=== PATIENT | male | born 1950 | race African-American/Black ===

== ENCOUNTER → 2016-06-09 | Outpatient (CLI) | payer BC ==
[~2016-06-09] MED LIST: ADALAT CC90 MG PO; AMLODIPINE BES10 MG PO; ASPIRIN 325MG325 MG PO; AUGMENTIN XR 101 TER PO; BIAXIN 500MG T500 MG PO; CLONIDINE HYDR0.2 MG PO; FISH OIL CONC1000 MG PO; HYDROCHLOROTH12.5 M1 PO; HYDROCHLOROTHIA25 M1 PO; HYTRIN5 MG PO; IMDUR 30MG. TAB30 MG PO; IMDUR 60MG. TAB60 MG PO; KEFLEX500 M1 PO; LISINOPRIL 20MG20 MG PO; LOPRESSOR 25MG.25 MG PO; MECLIZINE25 MG PO; METOPROLOL50 MG OR; METOPROLOL50 MG PO; MOTRIN 400MG.400 MG PO; NAPROXEN500 MG PO; NATURAL SAW PA160 MG PO; NORCO 325 MG-51 TAB PO; ODORLESS GARLI500 MG PO; TAMSULOSIN HYD0.4 MG PO
== END ==
LOC: RT 09:55
DX: R06.02 Shortness of breath (principal); I25.10 Atherosclerotic heart disease of native coronary artery without angina pectoris; I10 Essential (primary) hypertension; E78.5 Hyperlipidemia, unspecified

== ENCOUNTER → 2016-11-11 | Outpatient (CLI) | payer BC ==
[2016-11-11 09:42] LABS: HEMOGLOBIN 12.9 g/dL (14.1-18.0); LYMPH # 2.6 K/mm3 (0.7-4.5); LYMPH % 38.7 % (10-50)
== END ==
LOC: LAB 09:34
PROVIDERS: Family Medicine
DX: R10.9 Unspecified abdominal pain (principal)

== ENCOUNTER 2017-03-07 12:38 | Emergency (ER) | payer BC, MEDICARE ==
[~2017-03-07] VITALS: Ht 188 cm; Wt 120.2 kg
[2017-03-07 13:06] LABS: HEMOGLOBIN 14.1 g/dL (14.1-18.0); LYMPH # 2.7 K/mm3 (0.7-4.5); LYMPH % 39.4 % (10-50)
--- NOTE | 2017-03-07 13:12 | Emergency Room Report ---
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 N Clinical Suspician of Infection? N Mental Status: 1 - Regular (Normal Baseline) Sepsis Risk:Low Sepsis Risk Have you (or family members/close friends) recently traveled outside the [place]? N If Yes, where/when: Have you had exposure to infectious disease within the past month? TB? Other? Specify: Patient states she is gotten progressively weak over the past month. It is Worse in the past week he states he has been placed on CPAP recently. He states he has dyspnea on exertion. He denies any fever chills nausea vomiting or diarrhea he denies any pain. Specifically he states he has a minimal headache but that is normal for him, denies chest pain abdominal pain chest tightness or any chest discomfort. Denies any leg swelling he denies any myalgias no rash or skin discoloration. He sees she states she is seen Dr. Luna well recently he started him on the CPAP, he states he had a sleep study which showed sleep apnea about 6 months ago. Besides for the malaise and fatigue and dyspnea on exertion he denies any other symptoms. ALLERGIES Coded Allergies: No Known Allergies (03/07/17) Home Medications Reported Medications Terazosin Hcl (Hytrin) 5 MG PO QHS #30 Amlodipine Besylate (Amlodipine Besylate) 10 MG PO DAILY #30 Garlic (Odorless Garlic) 500 MG PO DAILY ISOSORBIDE MONONITRATE (IMDUR 30MG) 60 MG PO DAILY TAMSULOSIN HCL (Tamsulosin 0.4MG) 0.4 MG PO QHS Hydrochlorothiazide (Hydrochlorothiazide 12.5MG) 12.5 MG PO DAILY Metoprolol Tartrate (Metoprolol) 50 MG OR BID ASPIRIN (Aspirin 325MG) 325 MG PO DAILY Fish Oil (Fish Oil Concentrate) 1,000 MG PO DAILY #3 SAW PALMETTO (Saw [place]) 320 MG PO BID LISINOPRIL (Lisinopril) 20 MG PO BID Clonidine Hcl (Clonidine) 0.2 MG PO BID History Medical History General CAD? No Angina: No LA: No Hypertension? Yes Hyperlipidemia? No CHF? No DVT? No PE? No COPD? No Asthma? No Anemia? No GERD? No Gastric ulcers? No GI Bleed? No Hernia? Yes Thyroid Problems? No Hypothyroidism? No CVA? No Seizures? No Diabetes? No Insulin Dependent: No Insulin Pump: No Home FSBS? No Renal Insuffiency? No End Stage Renal Disease? No UTI? No Stones? No BPH? Yes GB Disease: No Nephritic Syndrome? No Asplenia? No Hepatitis? No Sickle Cell Disease? No Arthritis? No Migraines? Yes Cataracts? No Glaucoma? No MRSA? No HIV? No TB? No Anxiety? No Depression? No Cancer? No More? No Additional hx: chronic back pain TIA Immunization Hx Ped.Immunizations UTD Yes DT/Tetanus Unknown Flu 2015-FSN Pneumonia Received In Past Surgical Hx Previous Surgery?Y BACK FOR DISC X 2 STOMACH TUMOR LT ROTATOR CUFF LEFT EAR L ANKLE STENTS PLACED Family History Family Hx Diabetes Yes CAD No Hypertension Yes Hyperlipidemia No Cancer No TB No Social History Smoking Hx Smoker: Never Smoker Tobacco: No Type Cigars Packs/day N/A Alcohol Alcohol: No Review of Systems All Other Systems Reviewed and Negative Physical Exam Vital Signs Vital Signs Date Time Temp Pulse Resp B/P Pulse O2 O2 Flow FiO2 Ox Delivery Rate 03/07 1412 67 18 148/82 95 03/07 1245 97.8 83 18 210/110 99 General Appearance: Nontoxic obese Head: Normocephalic, without obvious abnormality, atraumatic. Eyes: conjunctiva/corneas clear ENT: Mucous membranes moist. Neck: No jugular venous distention. Cardiac: regular rate and rhythm Lungs: Clear to auscultation bilaterally Abdomen: Nontender, Nondistended, positive bowel sounds, no rebound : No CVA tenderness Extremities: trace edema pt states normal Musculoskeletal: No chest wall tenderness Skin: No rashes or lesions to exposed skin. Neurologic: Alert. No gross focal deficits Psychiatric: Normal affect (Oralia MANNING, Jed) General Appearance normal appearance Respiratory Status No: respiratory distress. Cardiovascular normal exam Neurologic alert Medical Decision Making LABS/Meds/Orders Pt receiving controlled substance in ED? No Comment cxr per my read no infiltrate, nad. bnp normal 251 urine is still pending, workup otherwise unremarkakle, kcl a little low, likely viral syndrome, pt states he can urinate Results/Orders Laboratory Tests 03/07/17 1455: Urine Color YELLOW, Urine Appearance CLEAR, Urine pH 5.5, Ur Specific [place] >= 1.030, Urine Protein NEGATIVE, Urine Ketones NEGATIVE, Urine Blood NEGATIVE, Urine Nitrate NEGATIVE, Urine Bilirubin NEGATIVE, Urine Urobilinogen 0.2, Ur Leukocyte Esterase NEGATIVE, Urine WBC 5-10, Urine Bacteria 2+, Urine Mucus 3+, Urine Glucose NEGATIVE 03/07/17 1316: ABG pH 7.47 H, ABG pCO2 (Temp Corrct 32.9 L, ABG pO2 (Temp Correct 71.6 L, ABG HCO3 23.5, ABG Total CO2 24.5, ABG O2 Sat (Calculated) 94.4, ABG Base Excess -0.2, Song Test ACCEPTABLE, Blood Gas Comments RIGHT RADIAL 03/07/17 1300: B-Natriuretic Peptide 78 03/07/17 1300: Sodium 143, Potassium 3.2 L, Chloride 107, Carbon Dioxide 27, BUN 13, Creatinine 0.9, Estimated Creat Clear 139, Estimated GFR (MDRD) 85, Glucose 157 H, Calcium 9.3, Total Bilirubin 1.2 H, AST 14 L, ALT 27, Alkaline Phosphatase 93, Creatine Kinase 125, CK-MB (CK-2) Rel Index 0.7, CK and CKMB Interp 0.9, Troponin I < 0.02, Total Protein 7.3, Albumin 3.9, Globulin 3.4 H, Albumin/ Globulin Ratio 1.1, TSH 0.92, Free T4 Index 7.7, Thyroxine (T4) 8.9, T3 Uptake 35, WBC 6.9, RBC 4.48 L, Hgb 14.1, Hct 39.6 L, MCV 88.3, RDW 13.7, Plt Count 222, MPV 8.8, Gran % 50.2, Gran # 3.5, Lymphocytes % 39.4, Monocytes % 6.8, Eosinophils % 3.3, Basophils % 0.4, Lymphocytes # 2.7, Monocytes # 0.5, Eosinophils # 0.2, Basophils # 0.0, PUBS MCHC 35.7 H, MCH 31.5 H Current Medication Orders Sig/Crow Start time Last Medication Dose Route Stop Time Status Admin Potassium Chloride 40 MEQ ONCE ONE 03/07 1430 DC PO 03/07 1431 Sodium Chloride 10 ML PRN PRN 03/07 1315 AC IV 03/08 1301 Orders Procedure Date/time Status CULTURE, URINE 03/07 1455 Active URINALYSIS/COMPLETE 03/07 1307 Complete BRAIN NATRIURETIC PEPTIDE 03/07 1307 Complete ELECTROCARDIOGRAM REQUEST 03/07 1301 Active CHEST(2 VIEWS-NOT PORTABLE) 03/07 1301 Active IV SALINE LOCK 03/07 1301 Active THYROID PANEL 2 (WITH TSH) 03/07 1301 Complete CBC WITH AUTO DIFF 03/07 1301 Complete CARDIAC ENZYMES 03/07 1301 Complete CHEM 12 PROFILE 03/07 1301 Complete 12 LEAD EKG-CHAY (INITIAL) 03/07 1300 Active ARTERIAL BLOOD GAS REQUEST 03/07 1250 Active CM/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 of ischemic chgs, no ectopy, normal QRS, normal MO, normal EKG Departure Departure Time of Disposition 1522 Disposition DC Home or Self Care(routine) Clinical Impression Primary Impression: Fatigue Qualifiers: Fatigue type: unspecified Qualified Code: R53.83 - Other fatigue Secondary Impressions: UTI (urinary tract infection) Qualifiers: Urinary tract infection type: acute cystitis Hematuria presence: without hematuria Qualified Code: N30.00 - Acute cystitis without hematuria Condition STABLE Patient Instructions DI for Fatigue, DI for Urinary Tract Infection (UTI) Additional Instructions follow up with your primary doctor for recheck thursday. return to ER if any problems, any chest discomfort. Discharge Counseling Counseled pt/family regarding diagnosis, test results, medications/RX, home care, follow up needs Prescriptions Current Visit Scripts CIPROFLOXACIN/CIPROFLOXA HCL (Ciprofloxacin ER 500 MG Tablet) 500 MG PO BID #14 TER ED Critical Care Critical Care No at 1527
--- OUTSIDE RECORDS SUMMARY | 2017-03-07 13:19 | External Medical Summary Rpt | CCD ---
Author Author , LAINA MARINA Address Unknown Phone [email or web address] Care Team Providers Care Project Management Analyst Name Role Phone Ousmane Bear MD, Unavailable Unavailable Ousmane Bear MD Purpose Continuity of Care Document - 04-20-2012 through 2016 Problems Code Diagnosis DOS Provider Status 278.00 278.00 02-21-2013 [place] OBESITY, [facility] 401.9 401.9 02-21-2013 [place] HYPERTENSIO [facility] 564.00 564.00 02-21-2013 [facility] CONSTIPATIO [facility] N 600.00 600.00 02-21-2013 [facility] OF PROSTATE W/O URINARY OBST & OTH LUTS 789.09 789.09 02-21-2013 [place] ABDOMINAL [facility] PAIN, OTHER Hospital SPECIFIED SITE V58.69 V58.69 OTH 02-21-2013 [place] MED,LT,[facility] ENT USE Hospital Allergies, Adverse Reactions, Alerts Type Allergy to substance Adverse Reaction to Substance Substance Reaction Severity INGREDIENT: NO KNOWN Unknown Unknown - NO KNOWN DRUG ALLERGY Medications Na ND Rx Da Fi Fi Am Da Di Ph RX Ph St me C No te ll ll ou ys ag ar # ys at rm s nt no ma ic us Or Da si cy ia de te s n re d SO 00 11 0 No DI 40 -0 UM 97 4- Lo 98 20 ng CH 30 13 er LO 9 RI Ac DE ti ve 0. 9% SO NUSART TI ON Sa 63 11 0 No li 80 -0 ne 70 4- Lo 10 20 ng Fl 07 13 er us 5 h Ac 10 ti ML ve Sy ri ng e Vital Signs 02-21-2013 22:00 Name Value Interpretat Reference Comment ion Range BP 98 mm[Hg] Diastolic BP Systolic 144 mm[Hg] Heart 66 /min Rate/Pulse O2% 95 % Respiratory 22 /min Rate 11-04-2013 19:51 Name Value Interpretat Reference Comment ion Range BP 82 mm[Hg] Diastolic BP Systolic 135 mm[Hg] Heart 70 /min Rate/Pulse O2% 100 % Respiratory 20 /min Rate Results Labs Lab Lab Date Result Refere Interp Status Commen Order Detail nces retati t Range on CBC w auto diff (03-07-2017 13:00) Automat = 0.0 0-0.2 complet ed 017 K/MM3 ed blood 13:00 basophi l count (count/ vo Red = 4.48 4.6-6.2 complet blood 017 M/mm3 ed cell 13:00 count Automat = 13.7 11.5-17 complet ed 017 % .5 ed erythro 13:00 cyte distrib ution width Blood = 6.9 4.8-10. complet leukocy 017 K/MM3 8 ed paulina 13:00 count (number /volume ) Baso % = 0.4 % 0.1-2.0 complet 017 ed 13:00 Automat = 0.2 0.0-0.4 complet ed 017 K/mm3 ed blood 13:00 eosinop hil count Automat = 3.3 % 0.1-12. complet ed 017 0 ed blood 13:00 eosinop hils/10 0 leukocy t Blood = 3.5 1.3-8.0 complet granulo 017 K/mm3 ed cytes 13:00 automat ed count (numb Granulo = 50.2 37.0-80 complet cyte 017 % .0 ed percent 13:00 age Blood = 39.6 42.0-52 complet hematoc 017 % .0 ed rit 13:00 (volume fractio n) Blood = 14.1 14.1-18 complet hemoglo 017 g/dL .0 ed bin 13:00 measure ment (mass/v olum Absolut = 2.7 0.7-4.5 complet e 017 K/mm3 ed lymphoc 13:00 yte count Lymphoc = 39.4 10-50 complet yte 017 % ed count, 13:00 blood, automat ed Mean 2 = 31.5 27-31.2 complet corpusc 017 pg ed ular 13:00 hemoglo bin (MCH) determ Automat = 35.7 31.8-35 complet ed 017 g/dl .4 ed erythro 13:00 cyte mean corpusc ular h Automat = 88.3 82.2-97 complet ed 017 fl .8 ed erythro 13:00 cyte mean corpusc ular v Absolut = 0.5 0.1-1.0 complet e 017 K/mm3 ed monocyt 13:00 e count [place] % = 6.8 % 1.7-9.3 complet 017 ed 13:00 Automat = 8.8 7.4-10. complet ed 017 fl 4 ed blood 13:00 platele t mean volume sadia Blood = 222 142-424 complet platele 017 K/mm3 ed t count 13:00 COMPREHENSIVE METABOLIC PANEL (02-21-2013 19:45) Glucose 99 74-106 complet 013 mg/dL ed Bld-mCn 19:45 c BUN 13 7-18 complet Bld-mCn 013 mg/dL ed c 19:45 Creat 0.9 0.8-1.3 complet SerPl-m 013 mg/dL ed Cnc 19:45 ESTIMAT 181 50-200 complet ED 013 ML/MIN ed CREATIN 19:45 INE CLEARAN CE GFR 86 Greater complet (ESTIMA 013 ML/MIN than ed OFELIA) 19:45 60 Sodium 140 136-145 complet SerPl-s 013 mmoL/L ed Cnc 19:45 Potassi 3.7 3.5-5.1 complet um 013 mmoL/L ed SerPl-s 19:45 Cnc Chlorid 105 98-107 complet e 013 mmoL/L ed SerPl-s 19:45 Cnc CO2 29 21.0-32 complet SerPl-s 013 mmoL/L .0 ed Cnc 19:45 Calcium 8.9 8.5-10. complet 013 mg/dL 1 ed SerPl-m 19:45 Cnc Prot 11-04-2 7.7 6.4-8.2 complet SerPl-m 013 gm/dL ed Cnc 19:45 Albumin 11-04-2 4.0 3.4-5.0 complet 013 gm/dL ed SerPl-m 19:45 Cnc Globuli 11-04-2 3.7 1.3-3.2 complet n 013 gm/dL ed Ser-mCn 19:45 c Albumin 11-04-2 1.1 UNK 1.1-1.8 complet /Glob 013 ed SerPl-m 19:45 Rto Bilirub 11-04-2 0.6 0.2-1.0 complet 013 mg/dL ed SerPl-m 19:45 Cnc AST 11-04-2 17 U/L 15-37 complet SerPl-c 013 ed Cnc 19:45 ALT 11-04-2 37 U/L 30-65 complet SerPl-c 013 ed Cnc 19:45 ALP 11-04-2 114 U/L 50-136 complet SerPl-c 013 ed Cnc 19:45 LIPASE (02-21-2013 19:45) LIPASE 11-04-2 86 U/L 73-393 complet 013 ed 19:45 CBC with AUTO DIFF (02-21-2013 19:45) WBC # 11-04-2 7.8 4.8-10. complet Bld 013 K/mm3 8 ed Auto 19:45 RBC # 11-04-2 5.08 4.6-6.2 complet Bld 013 M/mm3 ed Auto 19:45 Hgb 11-04-2 14.2 14.1-18 complet Bld-mCn 013 g/dL .0 ed c 19:45 Hct Fr 11-04-2 44.8 % 42.0-52 complet Bld 013 .0 ed 19:45 MCV RBC 11-04-2 88.2 fL 82.2-97 complet 013 .8 ed 19:45 MCH RBC 11-04-2 28.0 pg 27-31.2 complet Qn 013 ed Auto 19:45 MEAN 11-04-2 31.7 31.8-35 complet CORPUSC 013 g/dl .4 ed ULAR 19:45 HGB CONC RDW RBC 11-04-2 14.2 % 11.5-17 complet Auto 013 .5 ed 19:45 Platele 11-04-2 275 142-424 complet t Bld 013 K/mm3 ed Ql 19:45 Manual Granulo -04-2 56.0 % 37.0-80 complet cytes 013 .0 ed Fr Bld 19:45 Auto LYMPH % 11-04-2 39.0 % 10-50 complet 013 ed 19:45 Monocyt 11-04-2 5.0 % 1.7-9.3 complet es Fr 013 ed Bld 19:45 Auto Granulo 11-04-2 4.4 1.3-8.0 complet cytes # 013 K/mm3 ed Bld 19:45 Auto Lymphoc 11-04-2 3.0 0.7-4.5 complet ytes Fr 013 K/mm3 ed Bld 19:45 Auto Monocyt -04-2 0.4 0.1-1.0 complet es # 013 K/mm3 ed Bld 19:45 Auto URINALYSIS/COMPLETE (02-21-2013 17:45) URINE -04-2 YELLOW YELLOW complet COLOR 013 ed 17:45 URINE 11-04-2 CLEAR CLEAR complet APPEARA 013 ed NCE 17:45 URINE 11-04-2 NEGATIV NEG complet GLUCOSE 013 E ed - 17:45 DIPSTIC K URINE -04-2 NEGATIV NEG complet BILIRUB 013 E ed IN - 17:45 DIPSTIC K URINE 11-04-2 NEGATIV NEG complet KETONE 013 E mg/dL ed 17:45 URINE -04-2 1.010 1.005-1 complet SPECIFI 013 UNK .030 ed C 17:45 GRAVITY URINE 11-04-2 NEGATIV NEG complet BLOOD 013 E ed 17:45 URINE -04-2 6.0 UNK 5.0-8.5 complet PH 013 ed 17:45 URINE 11-04-2 NEGATIV NEG complet PROTEIN 013 E mg/dL ed - 17:45 DIPSTIC K URINE 11-04-2 0.2 NEG complet UROBILI 013 E.U./dL ed NOGEN - 17:45 DIPSTIC K URINE 11-04-2 NEGATIV NEG complet NITRATE 013 E ed - 17:45 DIPSTIC K URINE 11-04-2 NEGATIV NEG complet LEUK 013 E ed ESTERAS 17:45 E URINE 11-04-2 OCC 0 complet RBC 013 rbc/hpf ed 17:45 Encounters Encounter Start End Date Code Location Performer Type Date Emergency ODESSA Bear MD (ER) 3 18:38 3 22:01 [facility]
--- OUTSIDE RECORDS SUMMARY | 2017-03-07 13:19 | External Medical Summary Rpt | CCD ---
Author Author , LAINA MARINA Address Unknown Phone [email or web address] Care Team Providers Care Edge Trimming Machine Operator Name Role Phone Ousmane Bear MD, Unavailable Unavailable Ousmane Bear MD Purpose Continuity of Care Document - 04-20-2012 through 2016 Problems Code Diagnosis DOS Provider Status 278.00 278.00 02-21-2013 [place] OBESITY, [facility] 401.9 401.9 02-21-2013 [place] HYPERTENSIO [facility] 564.00 564.00 02-21-2013 [facility] CONSTIPATIO [facility] N 600.00 600.00 02-21-2013 [facility] (BENIGN) [facility] OF PROSTATE W/O URINARY OBST & OTH LUTS 789.09 789.09 02-21-2013 [place] ABDOMINAL [facility] PAIN, OTHER Hospital SPECIFIED SITE V58.69 V58.69 OTH 02-21-2013 [place] MED,LT,[facility] ENT USE Hospital Allergies, Adverse Reactions, Alerts [...] Ac DE ti ve 0. 9% SO NUSRAT TI ON Sa 63 11 0 No [...] 017 K/mm3 ed monocyt 13:00 e count [place] % = 6.8 % 1.7-9.3 complet 017 [...] Bear MD (ER) 3 18:38 3 22:01 [facility]
--- OUTSIDE RECORDS SUMMARY | 2017-03-07 13:20 | External Medical Summary Rpt | CCD ---
Demographics Preferred Language Danish Marital Status Unknown Gnosticist Affiliation Unknown Race Unknown Ethnic Group Unknown Author Author , LAINA MARINA Address Unknown Phone Immunization No patient found.
--- OUTSIDE RECORDS SUMMARY | 2017-03-07 13:20 | External Medical Summary Rpt ---
Author Author [employer], [employer] Organization [employer] Address Unknown Phone Unavailable Results CBC W Auto Differential panel in Blood Observa Value Referen Units Interpr Notes Date tion ce etation Range Basophils 0 - 0.2 K/MM3 Normal No Mar 07 inform2016 1:00 [#/volume on in PM ] in source Blood by data Automated count Basophils 0.1 - 2.0 % Normal No Mar 07 /100 informati 2016 1:00 leukocyte on in PM s in source Blood by data Automated count Eosinophi 0.0 - 0.4 K/mm3 Normal No Mar 07 ls informati 2016 1:00 [#/volume on in PM ] in source Blood by data Automated count Eosinophi 0.1 - % Normal No Mar 07 ls/100 12.0 informati 2016 1:00 leukocyte on in PM s in source Blood by data Automated count Granulocy 1.3 - 8.0 K/mm3 Normal No Mar 07 paulina informati 2016 1:00 [#/volume on in PM ] in source Blood by data Automated count Granulocy 37.0 - % Normal No Mar 07 paulina/100 80.0 informati 2016 1:00 leukocyte on in PM s in source Blood by data Automated count Hematocri 42.0 - % Low No Mar 07 t [Volume 52.0 informati 2016 1:00 on in PM Fraction] source of Blood data Hemoglobi 14.1 - g/dL Normal No Mar 07 n 18.0 informati 2016 1:00 [Mass/vol on in PM ume] in source Blood data Lymphocyt 0.7 - 4.5 K/mm3 Normal No Mar 07 es informati 2016 1:00 [#/volume on in PM ] in source Unspecifi data ed specimen by Automated count Lymphocyt 10 - 50 % Normal No Mar 07 es informati 2016 1:00 [#/volume on in PM ] in source Unspecifi data ed specimen by Automated count Erythrocy 27 - 31.2 pg High No Mar 07 te mean informati 2016 1:00 corpuscul on in PM ar source hemoglobi data n [Entitic mass] Erythrocy 31.8 - g/dl High No Mar 07 te mean 35.4 2016 1:00 corpuscul on in PM ar source hemoglobi data n concentra tion [Mass/vol ume] by Automated count Erythrocy 82.2 - fl Normal No Mar 07 te mean 97.8 2016 1:00 corpuscul on in PM ar volume source [Entitic data volume] by Automated count Monocytes 0.1 - 1.0 K/mm3 Normal No Mar 072016 1:00 [#/volume on in PM ] in source Blood by data Automated count Monocytes 1.7 - 9.3 % Normal No Mar 07 / inform2016 1:00 leukocyte on in PM s in source Blood by data Automated count Platelet 7.4 - fl Normal No Mar 07 mean 10.4 2016 1:00 volume on in PM [Entitic source volume] data in Blood by Automated count Platelets 142 - 424 K/mm3 Normal No Mar 072016 1:00 [#/volume on in PM ] in source Blood data Erythrocy 4.6 - 6.2 M/mm3 Low No Mar 07 paulina 2016 1:00 [#/volume on in PM ] in source Amniotic data fluid Erythrocy 11.5 - % Normal No Mar 07 te 17.5 2016 1:00 distribut on in PM ion width source [Entitic data volume] by Automated count Leukocyte 4.8 - K/MM3 Normal No Mar 07 s 10.8 2016 1:00 [#/volume on in PM ] in source Blood data CBC W Auto Differential panel in Blood Observa Value Referen Units Interpr Notes Date tion ce etation Range Basophils 0 - 0.2 K/MM3 Normal No Nov 112016 [#/volume on in ] in source Blood by data Automated count Basophils 0.1 - 2.0 % Normal No Nov 112016 leukocyte on in s in source Blood by data Automated count Eosinophi 0.0 - 0.4 K/mm3 Normal No Nov 11 ls 2016 [#/volume on in ] in source Blood by data Automated count Eosinophi 0.1 - % Normal No Nov 11 ls/100 12.0 2016 leukocyte on in s in source Blood by data Automated count Granulocy 1.3 - 8.0 K/mm3 Normal No Nov 11 paulina informati 2016 [#/volume on in ] in source Blood by data Automated count Granulocy 37.0 - % Normal No Nov 11 paulina/100 80.0 informati 2016 leukocyte on in s in source Blood by data Automated count Hematocri 42.0 - % Low No Nov 11 t [Volume 52.0 informati 2016 on in Fraction] source of Blood data Hemoglobi 14.1 - g/dL Low No Nov 11 n 18.0 informati 2016 [Mass/vol on in ume] in source Blood data Lymphocyt 0.7 - 4.5 K/mm3 Normal No Nov 11 es informati 2016 [#/volume on in ] in source Unspecifi data ed specimen by Automated count Lymphocyt 10 - 50 % Normal No Nov 11 es informati 2016 [#/volume on in ] in source Unspecifi data ed specimen by Automated count Erythrocy 27 - 31.2 pg Normal No Nov 11 te mean inform2016 corpuscul on in ar source hemoglobi data n [Entitic mass] Erythrocy 31.8 - g/dl Normal No Nov 11 te mean 35.4 informati 2016 corpuscul on in ar source hemoglobi data n concentra tion [Mass/vol ume] by Automated count Erythrocy 82.2 - fl Normal No Nov 11 te mean 97.8 informati 2016 corpuscul on in ar volume source [Entitic data volume] by Automated count Monocytes 0.1 - 1.0 K/mm3 Normal No Nov 112016 [#/volume on in ] in source Blood by data Automated count Monocytes 1.7 - 9.3 % Normal No Nov 11 /100 informati 2016 leukocyte on in s in source Blood by data Automated count Platelet 7.4 - fl Normal No Nov 11 mean 10.4 informati 2016 volume on in [Entitic source volume] data in Blood by Automated count Platelets 142 - 424 K/mm3 Normal No Nov 112016 [#/volume on in ] in source Blood data Erythrocy 4.6 - 6.2 M/mm3 Low No Nov 11 paulina informati 2016 [#/volume on in ] in source Amniotic data fluid Erythrocy 11.5 - % Normal No Nov 11 te 17.5 informati 2016 distribut on in ion width source [Entitic data volume] by Automated count Leukocyte 4.8 - K/MM3 Normal No Nov 11 s 10.8 informati 2017 [#/volume on in ] in source Blood data XR ANKLE LEFT AP AND LATERAL Observa Value Referen Units Interpr Notes Date tion ce etation Range Done osc ckh TEXT EXAMINA No No No No Apr 28 DIAGNOS TION OF informa informa informa informa 2012 IS THE tion in tion in tion in tion in 9:20 AM BATTERY LEFT source source source source ANKLEIN data data data data DICATIO NS: Intraop erative film for alignme nt status post fixatio n.Histo ry same.2 views from the operati ng room demonst rate the patient to be status postORI F. There isanato gloria alignme nt.IMPR ESSION: Anatomi c alignme nt status post ORIF. FL < 1 HOUR Observa Value Referen Units Interpr Notes Date tion ce etation Range TEXT Fluoros No No No No Apr 28 DIAGNOS copy informa informa informa informa 2012 IS was tion in tion in tion in ti in 9:20 AM BATTERY perform source source source source ed. The data data data data radiolo gist was not in attenda nce. Noperma nent images were obtaine d. This dictati on is being made for recordk eeping purpose s. EK EKG 12 LEAD Observa Value Referen Units Interpr Notes Date tion ce etation Range Sinus No No No No Apr 26 rhythmp informa informa informa informa 2012 ossible tion in tion in tion in tion in 3:14 PM source source source source inferio data data data data r infarct - age undeter minedNo previou s records availab leAbnor mal ECG XR ANKLE LEFT AP LATERAL AND OBLIQUE Observa Value Referen Units Interpr Notes Date tion ce etation Range TEXT XR No No No No Apr 20 DIAGNOS ANKLE informa informa informa informa 2012 IS LEFT AP tion in tion in tion in tion in 1:34 PM BATTERY source source source source LATERAL data data data data AND OBLIQUE , 3 views04/20/2012 at 1319 hoursCl inical: 60-year -old male.FI NDINGS: Soft tissue swellin g mostly medial. Small calcifi cation or bone fragmen tsinfer ior to medialm alleolu s suspect for avulsio n injury. Ankle mortise symmetr ic. Minor DJD ankle joint.I MPRESSI ON: Medial soft tissue swellin g with suspect ed avulsio n injury ofmedia l malleol us.Hayden r DJD. XR TIBIA FIBULA LEFT AP AND LATERAL Observa Value Referen Units Interpr Notes Date tion ce etation Range TEXT XR No No No No Apr 20 DIAGNOS TIBIA informa informa informa informa 2012 IS FIBULA tion in tion in tion in tion in 1:34 PM BATTERY LEFT AP source source source source AND data data data data LATERAL , 2 views04/20/2012 at 1317 hoursCl inical: 60-year -old male. FellIMP RESSION : Oblique ly oriente d minimal ly displac ed fractur e proxima l shaftof the left fibula. Intact tibia.
--- OUTSIDE RECORDS SUMMARY | 2017-03-07 13:20 | External Medical Summary Rpt | CCD ---
Author Author [employer] Organization [employer] Address Unknown Phone Unavailable Purpose Continuity of Care Document - through 2016
--- OUTSIDE RECORDS SUMMARY | 2017-03-07 13:20 | External Medical Summary Rpt | CCD ---
Demographics Preferred Language Latvian Marital Status Unknown Yazdanism Affiliation Unknown Race Unknown Ethnic Group Unknown Author Author , LAINA MARINA Address Unknown Phone Immunization No patient found.
[2017-03-07 13:28] LABS: ARTERIAL PO2 71.6 MMHG (80-100)
[2017-03-07 13:29] LABS: ALLEN'S TEST ACCEPTABLE; ARTERIAL ABE -0.2 MMOL/L (-2.4-+2.3); ARTERIAL TCO2 24.5 MMOL/L (23-27); OXYGEN ROOM AIR
[2017-03-07 13:31] LABS: BUN 13 mg/dL (7-18); FREE THYROXIN INDEX 7.7 ug/dl (5.93-13.13)
[2017-03-07 13:33] LABS: GFR (ESTIMATED) 85 ML/MIN (>60)
[2017-03-07 15:04] LABS: URINE BILIRUBIN - DIPSTICK NEGATIVE (NEG); URINE BLOOD NEGATIVE (NEG)
[2017-03-07] MEDS ORDERED: Ciprofloxacin500 MG PO (15:24)
[2017-03-07 15:40] VITALS: BP 152/88
--- NOTE | 2017-03-10 08:50 | RADIOLOGY REPORT PS360 ---
CHEST(2 VIEWS-NOT PORTABLE) Ordering Physician: Jed Barton MD Patient Age: 66 years: Male HISTORY: WEAKNESS2 weeks. Nonsmoker. HISTORY of cancer. TECHNIQUE: PA and lateral chest COMPARISON : PA and lateral chest from 03/26/2016. Also portable chest December 2014. FINDINGS Nothing definitely acute. Right lung is better expanded and relatively hyperlucent compared to the left. Upper normal markings at left infrahilar region towards left base appear slightly similar to previous studies from March 2016. No significant change here with nothing definitely acute Less optimal inspiration considered. Borderline cardiomegaly. Mildly tortuous aorta. Mediastinal hilar regions stable. Chest wall and T-spine stable. IMPRESSION: Stable chest with nothing definitely acute. Subtle accentuation lung markings medial left lung base most likely reflecting chronic changes & atelectasis; similar to previous 09/2009 & 03/2016, & likely accentuated less optimal aspiration today..If respiratory symptoms persist or progress follow-up chest film warranted to exclude early infiltrate
== END 2017-03-07 15:41 | disposition home or self-care (01) ==
LOC: ER 12:38
PROVIDERS: Emergency Medicine
DX: N30.00 Acute cystitis without hematuria (principal); R53.83 Other fatigue; I10 Essential (primary) hypertension